=== PATIENT | male | born 1970 | race Caucasian/White ===

== ENCOUNTER 2024-03-05 17:54 | Emergency (ER) | payer OTHER ==
[2024-03-05] MEDS: Tetracaine HCl/PF 0.5% 4 ML Bottle EYELF ONE (20:04)
== END 2024-03-05 20:45 | disposition home or self-care (01) ==
LOC: JP.ED 17:54
DX: S05.02XA Injury of conjunctiva and corneal abrasion without foreign body, left eye, initial encounter (principal); Z86.16 Personal history of COVID-19; Z79.899 Other long term (current) drug therapy; X58.XXXA Exposure to other specified factors, initial encounter
CPT/HCPCS: 99283